=== PATIENT | female | born 1970 | race Caucasian/White ===

== ENCOUNTER 2022-08-01 06:28 | Day surgery (SDC) | payer MEDICAID ==
[~2022-08-01] VITALS: Ht 162.6 cm; Wt 72.6 kg
[2022-08-01] MEDS ORDERED: SIMETHICONE 40 MG/0.6 ML ML ONE (06:50)
[2022-08-01] MEDS ORDERED: fentaNYL CITRATE/PF 100 MCG/2 ML AMP ONE (06:51)
[2022-08-01] MEDS ORDERED: MIDAZOLAM HCL 5 MG/5 ML VIAL ONE (06:52)
[2022-08-01 14:01] VITALS: BP_SYST 90
== END 2022-08-01 09:43 | disposition home or self-care (01) ==
LOC: SDS 06:28 → EDSEX 06:28 → STU 06:53 → SDS 09:43
PROVIDERS: ATTEND Internal Medicine
DX: Z12.11 Encounter for screening for malignant neoplasm of colon (principal); K64.8 Other hemorrhoids; Z87.891 Personal history of nicotine dependence
CPT/HCPCS: 45380; 88305; 99152; G0378; J2250; J3010